=== PATIENT | male | born 1960 | race Caucasian/White ===

== ENCOUNTER 2019-01-20 16:06 | Inpatient (IN) ==
--- NOTE | 2019-01-20 16:23 | EKG Report ---
Test Performed on : 01/20/2019 4:18:36 PM Test Reason : sob Blood Pressure : / mmHG Vent. Rate : 094 BPM Atrial Rate : 094 BPM P-R Int : 182 ms QRS Dur : 154 ms QT Int : 392 ms P-R-T Axes : 051 228 008 degrees QTc Int : 490 ms Normal sinus rhythm. Right bundle branch block Abnormal ECG When compared with ECG of 26-MAY-2012 01:03, Questionable change in QRS axis Criteria for Septal infarct are no longer present Unconfirmed Result
--- NOTE | 2019-01-20 16:37 | Diag Imaging Result Doc PS360 ---
EXAM: CHEST-2 VIEWS 01/20/2019 HISTORY: sob TECHNIQUE: PA and lateral chest COMMENT: There is a fairly large hiatal hernia. There is a calcified granuloma over the left base. There is accentuated kyphosis. Compared to 06/06/2014 there has been no significant change in the appearance the chest. IMPRESSION: Stable chest. Electronically signed by Tre Thayer 01/20/2019 4:35 PM
[2019-01-20 16:38] LABS: BASO# 0.02 X1000 (0.0-0.2); BASO% 0.1 % (0.0-0.8); EOS# 0.13 X1000 (0.0-0.7); EOS% 0.7 % (0.0-10.0); HEMATOCRIT 48.3 % (42.0-52.0); HEMOGLOBIN 15.5 g/dL (14.0-18.0); IMM GRAN# 0.04 X1000 (0.0-0.04); IMM GRAN% 0.2 % (0.0-0.5); LYMPH# 1.33 X1000 (1.2-3.4); LYMPH% 7.5 % (20.5-51.1); MCHC 32.1 g/dL (33-37); MCV 84.1 FL (81-99); MONO# 1.79 X1000 (0.11-0.59); MONO% 10.1 % (1.7-9.3); MPV 11.4 FL (7.4-10.4); NEUT# 14.48 X1000 (1.4-6.5); NEUT% 81.4 % (42.2-75.2); PLT 197 X1000 (130-400); RBC 5.74 XMIL (4.7-6.1); RDW 17.4 % (11.5-14.5); WBC 17.79 X1000 (4.8-10.8)
[2019-01-20 16:42] LABS: INR 0.99; PROTIME 13.9 Seconds (11.0-16.0)
[2019-01-20 16:43] LABS: PTT 33.1 Seconds (22.3-41.8)
[2019-01-20] MEDS ORDERED: SOLU-MEDROL IV ONE (16:44)
[2019-01-20] MEDS ORDERED: DUONEB (A & A) INH ONE ×2 (16:44→18:09)
[2019-01-20 17:06] LABS: AGAP 13; ALB/GLOB RATIO 1.3; ALBUMIN 4.4 g/dL (3.5-5.0); ALKALINE PHOSPHATASE 95 U/L (32-122); BUN 14 mg/dL (8-22); CHLORIDE 101 mmol/L (98-107); CK PROFILE 149 U/L (24-204); COSMO 282; CREATININE 0.8 mg/dL (0.7-1.2); ESTIMATED GFR > 60; GLUCOSE 105 mg/dL (70-104); GOT 21 U/L (10-34); GPT 16 U/L (10-44); POTASSIUM 3.8 mmol/L (3.5-5.1); SODIUM 141 mmol/L (136-145); TCO2 27 mmol/L (25-35); TOTAL BILIRUBIN 0.43 mg/dL (0.20-1.00); TOTAL PROTEIN 7.7 g/dL (6.3-8.3)
--- NOTE | 2019-01-20 18:06 | PROVIDER DOCUMENTATION ---
This chart was entered by Marianela Vora Scribe, acting as scribe for Dre Frank MD. HPI-Respiratory General <Prabhu Camacho - Last Filed: 01/20/19 20:35> - General Source: patient - History of Present Illness-Resp Quality of Pain: reports: pressure Severity in ED: reports: moderate Onset/Duration: reports: 3 days ago Timing: reports: still present Context: reports: other Exposure: reports: unknown cause Cough Quality/Degree: reports: dry cough Episode Frequency: no prior episodes Current Respiratory Medication Therapy: Initiated see nurses note Modifying Factors: improves with: nothing Associated Symptoms: reports: cough, shortness of breath, sinus pain, short of breath, other (sinus congestion/drainage; low O2 sat) Similar Symptoms Previously?: No Recently seen or treated by another doctor?: No <Dre Frank - Last Filed: 01/21/19 07:03> - General Chief Complaint: Shortness of Breath Stated Complaint: SOB,COUGH Time Seen by Provider: 01/20/19 16:39 Allergies/Adverse Reactions: Patient Allergies Allergy/AdvReac Type Severity Reaction Status Date / Time No Known Allergies Allergy Verified 01/20/19 16:44 Home Medications: Home Medication List Medication Instructions Recorded Confirmed Last Taken Type ATORVAstatin [Lipitor] 20 mg PO DAILY 01/20/19 01/20/19 Unknown History Aspirin [Aspirin EC] 81 mg PO DAILY 01/20/19 01/20/19 Unknown History Diltiazem HCl [Diltiazem 24Hr ER] 180 mg PO DAILY 01/20/19 01/20/19 Unknown History Docusate Sodium 100 mg PO DAILY 01/20/19 01/20/19 Unknown History Ferrous Sulfate 325 mg PO BID 01/20/19 01/20/19 Unknown History Gabapentin 800 mg PO TID 01/20/19 01/20/19 Unknown History Losartan Potassium 25 mg PO DAILY 01/20/19 01/20/19 Unknown History Meloxicam 15 mg PO DAILY 01/20/19 01/20/19 Unknown History Methenamine Mandelate 1 tab PO TID 01/20/19 01/20/19 Unknown History Methocarbamol 750 mg PO BID PRN 01/20/19 01/20/19 Unknown History Omeprazole 40 mg PO DAILY 01/20/19 01/20/19 Unknown History Tamsulosin [Flomax] 0.4 mg PO DAILY 01/20/19 01/20/19 Unknown History Tramadol HCl 100 mg PO TID PRN 01/20/19 01/20/19 Unknown History - History of Present Illness-Resp Nature of Presenting Problem: 59 y/o male presents to ED with SOB, sinus congestion/drainage, cough, and sinus pain onset 3 days ago. Pt was sent to ED due to low O2 sat. Pt reports he is not on O2 at home. Pt is alert and oriented. (Dre Frank) Review of Systems - Adult - REVIEW OF SYSTEMS - ADULT Constitutional: reports: other (low O2 sat). denies: chills, fever Eyes: reports: no symptoms reported Ears, Nose, Mouth & Throat: reports: sinus problem. denies: epistaxis Cardiovascular: denies: chest pain, palpitations Respiratory: reports: cough, shortness of breath Gastrointestinal: denies: abdominal pain, diarrhea, nausea, vomiting Genitourinary: reports: no symptoms reported Musculoskeletal: denies: back pain, joint pain Integumentary: reports: no symptoms reported Neurological: denies: dizziness/vertigo, seizure Psychiatric: reports: no symptoms reported Endocrine: reports: no symptoms reported Hematologic/Lymphatic: reports: no symptoms reported Allergic/Immunologic: reports: no symptoms reported All Other Systems: Reviewed and Negative <Dre Frank - Last Filed: 01/21/19 07:03> Past History - Adult - PAST MEDICAL HISTORY-ADULT Review of Records: reports: Old Records Reviewed, Nursing Assessment Review, Medications Reviewed Major Childhood Illnesses: reports: denies history Cardiovascular: reports: CAD, HTN Respiratory: reports: denies history Gastrointestinal: reports: GERD, other (C Diff) Obstetrical/Gynecological: reports: denies history Genitourinary: reports: denies history Musculoskeletal: reports: denies history, other (akiolosis spondylitis) Neurological: reports: denies history, CVA Endocrine/Immune: reports: denies history Other Conditions: reports: denies history, other cancer (skin) - PRIOR SURGERIES/PROCEDURES Surgical/Procedure History: reports: other (dental; skin cancer removed) - IMMUNIZATION STATUS Childhood Immunizations: See Nurse Assessment Flu Vaccine: See Nurse Assessment - FAMILY HISTORY Family History: reviewed, not pertinent - SOCIAL HISTORY Smoking: quit greater than 1 year Substance Use: none/never Alcohol Use Frequency: never Living Situation: family <Dre Frank - Last Filed: 01/21/19 07:03> Physical Exam-General - PHYSICAL EXAM-ADULT Initial Vital Signs Reviewed: Yes - CONSTITUTIONAL General Appearance: alert, no apparent distress - EYES Eyes: PERRL/EOMI, pink conjunctivae - HEAD, EARS, NOSE, MOUTH & THROAT HENMT: normocephalic/atraumatic, moist mucous membranes, normal ENT inspection - NECK Neck: non-tender, full range of motion - RESPIRATORY Respiratory: chest non-tender, decreased breath sounds, increased rate - CARDIOVASCULAR Cardiovascular: tachycardia - GASTROINTESTINAL (ABDOMEN) Abdominal Exam: normal bowel sounds, non tender, soft - MUSCULOSKELETAL Back Exam: normal inspection, no CVA tenderness Extremity: normal range of motion, non-tender, normal gait - SKIN Integumentary: normal color, warm/dry - NEUROLOGIC Neurologic: grossly normal - PSYCHIATRIC Psych/Mental Status: normal mood/affect, normal thought content, normal thought process <Dre Frank - Last Filed: 01/21/19 07:03> - HEART Score HEART Score: History: Slightly Suspicious HEART Score: ECG: Normal HEART Score: Age: 45-65 Years HEART Score: Risk Factors for Atherosclerotic Disease: 1 or 2 Risk Factors HEART Score: Troponin: < or = Normal Limit Total HEART Score:: 2 <Dre Frank - Last Filed: 01/21/19 07:03> Progress - PLAN OF CARE/RESULTS Result Diagrams: 01/20/19 16:23 01/20/19 16:23 <Prabhu Camacho - Last Filed: 01/20/19 20:35> - PLAN OF CARE/RESULTS Result Diagrams: 01/20/19 16:23 01/20/19 16:23 - EKG 1 Time of EKG reading by physician:: 16:18 EKG Read and Signed by:: Dre Frank EKG Interpretation (*Must complete 3 of following elements*): Abnormal Rate: 94 Rhythm: NSR [place]: normal QRS: RBB [place] Interval: normal ST Wave: normal - XRAY 1 XRAY Study: Chest Impression: Normal (COMMENT: There is a fairly large hiatal hernia. There is a calcified granuloma over the left base. There is accentuated kyphosis. Compared to 06/06/2014 there has been no significant change in the appearance the chest. IMPRESSION: Stable chest. Electronically signed by Tre Thayer 01/20/2019 4:35 PM) <Dre Frank - Last Filed: 01/21/19 07:03> - PLAN OF CARE/RESULTS Progress/Plan/Lab Results: Pt signed out to me by Dr. Frank, workup completed and pt just needed to be admitted for hypoxia, spoke with the hospitalist and will admit (Prabhu Camacho) Departure - Departure Date of Disposition Decision: 01/20/19 Time of Disposition Decision: 20:37 Certified Medical Emergency: Emergent - Critical Care Note This patient required my direct & personal management of CC.: No <Prabhu Camacho - Last Filed: 01/20/19 20:35> <Dre Frank - Last Filed: 01/21/19 07:03> - Departure DIAGNOSIS: Hypoxia Disposition: ADMITTED INPATIENT 09 Condition: Stable Attestation - Physician/ REJI Attestation Patient care was provided by Advanced Practice Provider:: No The physician spent face to face time with patient:: Yes Advanced Practice Provider documentation review:: Supervising physician onsite and consulted in the evaluation and care of this patient. The physician did have a face to face encounter with the patient. <Dre Frank - Last Filed: 01/21/19 07:03> This chart was documented by the indicated scribe, (Marianela Vora Scribe) and accurately reflects the services I performed and decisions made by me, Dre Frank MD, as attested by the provider's signature.
[2019-01-20] MEDS ORDERED: ROCEPHIN 2 GM in NS 50 ML IV ONE (18:09)
[2019-01-20] MEDS ORDERED: ZITHROMAX 500 MG/NS 500 MG/250 ML IVPB IV ONE (18:09)
--- NOTE | 2019-01-20 21:09 | Diag Imaging Result Doc PS360 ---
EXAM: CT THORAX W/O CONTRAST - 01/20/2019 HISTORY: hypoxia TECHNIQUE: CT thorax without contrast. No contrast administered per request the referring provider. COMPARISON: 01/20/2019 chest radiographs FINDINGS: There is generalized bronchial wall thickening which may relate to COPD and/or bronchitis. There is a lobulated pleural-based opacity at the posterior medial inferior right lower lobe which may represent small area of atelectasis or consolidation. There is mild pleural thickening at the posterior right base. There is no other consolidation, pleural effusion, or pneumothorax identified. There are nonspecific small mediastinal lymph nodes. There is a large hiatal hernia. There are apparent cyst noted at the upper left kidney. IMPRESSION: Generalized bronchial wall thickening which may relate to COPD and/or bronchitis. Lobulated pleural-based opacity at posterior medial inferior right lower lobe, possibly representing peripheral atelectasis or consolidation. Mild pleural thickening at posterior right base. Follow-up is recommended. Large hiatal hernia. This exam was performed using automated exposure control, adjustment of mA or kV according to patient size, and/or use of iterative reconstruction technique. Electronically signed by Thor Murillo 01/20/2019 9:07 PM
[2019-01-20 22:11] LABS: URINE SOURCE CLEAN CATCH
[2019-01-20 22:28] LABS: BILIRUBIN URINE NEGATIVE (NEGATIVE); BLOOD URINE NEGATIVE (NEGATIVE); COLOR YELLOW; GLUCOSE URINE NEGATIVE (NEGATIVE); KETONE URINE 40 mg/dL (NEGATIVE); LEUKOCYTES URINE TRACE (NEGATIVE); NITRITE URINE NEGATIVE (NEGATIVE); PROTEIN URINE 100 mg/dL (NEGATIVE); SP GRAVITY URINE 1.031; TURBIDITY URINE CLEAR (CLEAR); UROBILINOGEN URINE NORMAL (NORMAL)
[2019-01-20 22:34] LABS: UR EPITHELIAL CELLS <10 /HPF (<10); URINE BACTERIA NEGATIVE /HPF; URINE RBC <10 /HPF (<10); URINE WBC <10 /HPF (<10)
--- NOTE | 2019-01-20 22:53 | HISTORY AND PHYSICAL ---
PRIMARY CARE PHYSICIAN: Gabo Trinidad MD. REASON FOR ADMISSION: A 5-day history of cough and shortness of breath. HISTORY OF PRESENT ILLNESS: Mr. Nitesh Del Real is a 59-year-old man with past medical history of skin cancer, hypertension, BPH, reflux disease, osteoporosis and ankylosing spondylitis, who comes in complaining of cough and postnasal drip for the last 5 days. He says his cough is productive of whitish sputum and is also associated with pleuritic type chest pain. He says he has a chronic long-standing history for the last 2 months of dyspnea and has reports that he has had an extensive workup including a stress test, echocardiograms in the last few months and even a lung function test and was told that his tests were normal although his PFT did show moderate reversible airway obstruction. He denies any fever, but says he has been having chills and profound diaphoresis today, which prompted him to seek care at the urgent care. When they evaluated him and noted his O2 saturations were in the low 80s and referred him to the ER. Mr. Del Real denies any leg swelling, PND, orthopnea. No sneezing or ocular nasal pruritus. Denies extremity swelling, redness or pain. No GI or complaints. REVIEW OF SYSTEMS: Twelve system review was done. Positive findings per HPI. ALLERGIES: No known allergies. HOME MEDICATIONS: He takes aspirin 81 mg daily. Cardizem 180 mg daily. Colace 100 mg daily. Iron tablets 325 mg b.i.d., Flomax 0.4 mg daily. Gabapentin 800 mg t.i.d., Lipitor 20 mg daily. Losartan 25 mg daily. Mobic 15 mg daily. Methenamine mandelate 1 tablet t.i.d., methocarbamol 75 mg b.i.d., omeprazole 40 mg daily, tramadol 100 mg t.i.d. SURGICAL HISTORY: Notable for skin cancer excision. Had a cardiac catheterization a few years ago, but reports that there was no blockages. FAMILY HISTORY: Notable for lung cancer. His dad had heart disease and type 2 diabetes in first- degree relatives. SOCIAL HISTORY: Denies any smoking, drinking or using illicit drugs. PAST MEDICAL HISTORY: As noted above, including sleep apnea. LAB WORK: Notable for white count of 17,000, hemoglobin and hematocrit of 15 and 48, platelets 197 with 81% neutrophils. BUN is 14, creatinine 0.8, glucose is 105, troponin is negative. ProBNP is negative. Lactate was normal. PTT is normal. Chest film shows no acute infiltrate. However, patient's CT scan did show posterior inferior area of consolidation. Generalized bronchial wall thickening, which may relate to COPD and bronchitis. Also, a very large hiatal hernia. PHYSICAL EXAMINATION: GENERAL/VITAL SIGNS: Middle-aged, man, whose blood pressure is 156/91, heart rate 81, respirations 18, temperature is 100.4, 95% on room air on 2 L. HEENT: Head is normocephalic, atraumatic. Eyes, VAHID, EOMI. Anicteric and not pale. ENT exam is grossly normal. NECK: No sign of cyanosis. Neck is supple. No JVD or carotid bruit. No thyromegaly. CHEST: The patient has bibasilar wheezes more on the right compared to the left with crepitations in both lung schmidt. Decreased entry in the bases. CARDIOVASCULAR: First and second heart sounds heard. No gallops, rubs. Rhythm is regular. ABDOMEN: Slightly full, soft. No mass, megaly. Bowel sounds are normal. RECTAL: Deferred at this time. EXTREMITIES: The patient has good distal pulses. Volumes are regular and symmetrical in both lower extremities. No edema, clubbing or cyanosis. NEUROLOGICAL: No gross focal deficits. SKIN: The patient is clammy and cold and patient is diaphoretic. No erythema, no skin breakdown or rashes. MUSCULOSKELETAL: Exam is grossly normal. ASSESSMENT: 1. Probable aspiration pneumonia. 2. Large hiatal hernia. 3. Hypertension. 4. Chronic obstructive pulmonary disease. 5. Sleep apnea. 6. Osteoporosis. 7. Ankylosing spondylitis. PLAN: Patient will be treated for presumptive aspiration pneumonia based on the fact that most of his symptoms on the right side of the lung. He has a large hiatal hernia which may be disposing to that. Will also cover community-acquired pathogen. Hence my choice of Levaquin and clindamycin. The patient will need nebulizer treatments. If primary is just bronchitis of both acute and chronic in nature. Continue home medications as outlined above. Monitor for urinary retention since patient has underlying BPH and will be on Ipratropium in his inhalation. cc: OlMD Gabo Avendaño MD [facility]
[2019-01-20] MEDS ORDERED: ZOFRAN IV PRN (23:11)
[2019-01-20] MEDS ORDERED: TYLENOL PO PRN (23:11)
[2019-01-20] MEDS ORDERED: CLINDAMYCIN IV SCH (23:11)
[2019-01-21] MEDS: LEVAQUIN 750 MG/D5W 750 MG/150 ML IVPB IV SCH ×2 (00:28→21:12)
[2019-01-21] MEDS: LOVENOX SUBQ SCH ×2 (00:28→21:12)
[2019-01-21] MEDS: ROBAXIN PO PRN ×3 (00:45→21:12)
[2019-01-21] MEDS: PRILOSEC PO SCH ×2 (00:45→21:12)
[2019-01-21] MEDS: ULTRAM PO PRN ×3 (00:45→21:11)
[2019-01-21] MEDS: CLINDAMYCIN 600 MG/D5W 600 MG/50 ML IVPB IV SCH ×3 (02:20→17:00)
[2019-01-21] MEDS: DUONEB (A & A) INH SCH ×4 (03:40→19:47)
[2019-01-21 07:02] LABS: BASO# 0.01 X1000 (0.0-0.2); BASO% 0.1 % (0.0-0.8); HEMATOCRIT 46.2 % (42.0-52.0); HEMOGLOBIN 14.8 g/dL (14.0-18.0); IMM GRAN# 0.03 X1000 (0.0-0.04); IMM GRAN% 0.2 % (0.0-0.5); LYMPH# 0.74 X1000 (1.2-3.4); LYMPH% 6.1 % (20.5-51.1); MCH 26.9 PG (27-31); MCV 83.8 FL (81-99); MONO# 0.39 X1000 (0.11-0.59); MONO% 3.2 % (1.7-9.3); MPV 11.2 FL (7.4-10.4); NEUT# 10.96 X1000 (1.4-6.5); NEUT% 90.4 % (42.2-75.2); PLT 199 X1000 (130-400); RBC 5.51 XMIL (4.7-6.1); RDW 17.2 % (11.5-14.5); WBC 12.13 X1000 (4.8-10.8)
[2019-01-21 07:08] LABS: AGAP 13; BUN 19 mg/dL (8-22); CALCIUM 9.7 mg/dL (8.8-10.2); CHLORIDE 102 mmol/L (98-107); COSMO 284; CREATININE 0.8 mg/dL (0.7-1.2); ESTIMATED GFR > 60; GLUCOSE 174 mg/dL (70-104); POTASSIUM 3.6 mmol/L (3.5-5.1); SODIUM 139 mmol/L (136-145); TCO2 24 mmol/L (25-35)
[2019-01-21 07:35] LABS: LYMPHS 6 % (21-51); MONO 4 % (1-9); SEGS 90 % (42-75)
[2019-01-21] MEDS: FLOMAX PO SCH (08:01)
[2019-01-21] MEDS: COZAAR PO SCH (08:01)
[2019-01-21] MEDS: NEURONTIN PO SCH ×3 (08:01→17:00)
[2019-01-21] MEDS: LIPITOR PO SCH (08:01)
[2019-01-21] MEDS: ASPIRIN EC PO SCH (08:01)
[2019-01-21] MEDS: CARDIZEM LA PO SCH (08:01)
[2019-01-21] MEDS ORDERED: METHENAMINE MANDELATE PO SCH (09:00)
[2019-01-21] MEDS ORDERED: PNEUMOVAX 23 IM ONE (11:48)
--- NOTE | 2019-01-21 17:41 | PROGRESS NOTE ---
DATE: 01/21/2019 INTERVAL HISTORY: Mr. Del Real was admitted overnight for shortness of breath and occasional cough of about 5 days' duration. He was found to have a large hiatal hernia and right lower lobe pneumonia. He is being treated with intravenous antibiotics. SUBJECTIVE: He is denying any expectoration, though he has a sinus congestion and nasal stuffiness. He states that before he was started on proton pump inhibitors a few weeks ago, he would wake up in the middle of the night and would throw up because of his large hiatal hernia. He also tells me that he is being treated for his anemia, which currently appears to have resolved. He has about a 2 pack per day history of 20 years' duration where he had quit smoking about 20 years ago now. He has ankylosing spondylitis history. Currently he is denying any chest pain. His shortness of breath is also better. He has occasional cough. The patient's daughter is at bedside. VITALS: Temperature 97.8, pulse 73, respiratory rate 22, blood pressure 120/64, saturating 95% on 2 L nasal cannula. PHYSICAL EXAMINATION: General: Overweight man in mild distress because of shortness of breath. He has nasal cannula on. HEENT: Oral cavity is moist. Respiratory: He has significantly decreased air entry bilaterally without any wheeze, rhonchi or crackles. He has barrel-shaped chest. Cardiovascular: S1, S2 normal. No murmur, rub, or gallop. Abdomen: Soft, nontender. No hepatosplenomegaly. No lower extremity edema. He does have significant Platynychia, or flattening of nail beds bilaterally. He also has marked kyphoscoliosis. LABORATORY: Suggestive of improving leukocytosis. Normal hemoglobin, hematocrit, and platelet count. Normal electrolytes. He does have elevated lactate of unclear significance. Microbiology: Urine culture, blood culture no growth to date. IMAGING: Chest CT performed yesterday night had suggested large hiatal hernia, lobulated pleural based opacity, possibly representing consolidation. There was also mild pleural thickening at the posterior right base. ASSESSMENT AND PLAN: 1. Likely sepsis due to right lower lobe pneumonia, likely due to aspiration pneumonia. Follow up final blood culture results, urine antigens and follow up sputum culture if he is able to make one. Continue intravenous levofloxacin and intravenous clindamycin. The patient was extensively discussed about right lower lobe opacity and need for repeat CAT scan in future with Pulmonology follow-up. His shortness of breath could be in the setting of mild acute chronic obstructive pulmonary disease exacerbation and there could be a component of restrictive lung disease because of his kyphoscoliosis. Continue albuterol ipratropium nebulization. 2. Hiatal hernia with history of chronic gastroesophageal reflux disease. He has been following up with outpatient furniture refinisher. Continue omeprazole. 3. Essential hypertension. Continue home diltiazem, losartan. 4. Ankylosing spondylitis and chronic pain. Continue home tramadol and gabapentin with methocarbamol. 5. Others. Continue home aspirin and atorvastatin. 6. Disposition: Patient remains inside the hospital as I monitor his respiratory status. Plan of care discussed with patient and his daughter at bedside. All of their questions have been answered satisfactorily. cc: Pacheco Roman MD MTDD
[2019-01-21] MEDS: FERROUS SULFATE PO SCH (21:26)
[2019-01-22] MEDS: CLINDAMYCIN 600 MG/D5W 600 MG/50 ML IVPB IV SCH ×3 (01:05→16:17)
[2019-01-22] MEDS: LEVAQUIN 750 MG/D5W 750 MG/150 ML IVPB IV SCH ×2 (01:05→23:24)
[2019-01-22] MEDS: LOVENOX SUBQ SCH ×2 (01:06→23:24)
[2019-01-22] MEDS: DUONEB (A & A) INH SCH ×4 (03:23→21:00)
[2019-01-22] MEDS: PRILOSEC PO SCH ×2 (06:13→20:28)
[2019-01-22 07:10] LABS: BASO# 0.02 X1000 (0.0-0.2); BASO% 0.1 % (0.0-0.8); EOS# 0.01 X1000 (0.0-0.7); HEMATOCRIT 43.2 % (42.0-52.0); HEMOGLOBIN 13.7 g/dL (14.0-18.0); IMM GRAN# 0.11 X1000 (0.0-0.04); IMM GRAN% 0.5 % (0.0-0.5); LYMPH# 1.79 X1000 (1.2-3.4); LYMPH% 7.9 % (20.5-51.1); MCHC 31.7 g/dL (33-37); MCV 85.2 FL (81-99); MONO# 1.88 X1000 (0.11-0.59); MONO% 8.2 % (1.7-9.3); MPV 11.6 FL (7.4-10.4); NEUT# 18.99 X1000 (1.4-6.5); NEUT% 83.3 % (42.2-75.2); PLT 219 X1000 (130-400); RBC 5.07 XMIL (4.7-6.1); RDW 17.3 % (11.5-14.5)
[2019-01-22] MEDS: CARDIZEM LA PO SCH (09:37)
[2019-01-22] MEDS: LIPITOR PO SCH (09:38)
[2019-01-22] MEDS: FERROUS SULFATE PO SCH ×2 (09:38→20:29)
[2019-01-22] MEDS: NEURONTIN PO SCH ×3 (09:38→20:29)
[2019-01-22] MEDS: MOBIC PO SCH (09:38)
[2019-01-22] MEDS: COZAAR PO SCH (09:38)
[2019-01-22] MEDS: FLOMAX PO SCH (09:38)
[2019-01-22] MEDS: ASPIRIN EC PO SCH (09:38)
[2019-01-22] MEDS ORDERED: LASIX IV ONE (15:27)
[2019-01-22] MEDS: PREDNISONE PO SCH (16:16)
[2019-01-22] MEDS: ULTRAM PO PRN (16:17)
[2019-01-22] MEDS: ROBAXIN PO PRN (16:17)
[2019-01-22] MEDS: COLACE PO SCH (17:16)
[2019-01-22] MEDS: FLONASE NAS SCH (17:18)
--- NOTE | 2019-01-22 18:47 | PROGRESS NOTE ---
DATE: 01/22/2019 INTERVAL HISTORY: Patient had hypoxia and saturation of 88% on room air. SUBJECTIVE: The patient states he is feeling fine. He is feeling a little better than he did before. He denies any chest pain. He is still a little short of breath. He denies any nausea, vomiting, abdominal pain. We discussed about my exam finding. We also discussed about possible home oxygen need. I answered all of his questions. Patient's daughter is at bedside. Currently vital signs are temperature 97.9 degrees, pulse 90, respiratory rate 20, blood pressure 145/81, saturating 93% on room air. PHYSICAL EXAMINATION: General: The patient does not appear in any acute distress. Oral cavity is moist. He does have some tachypnea and use of accessory muscles. He has barrel shaped chest. Air entry bilaterally decreased significantly without any wheeze, rhonchi. Mild inspiratory crackles bilateral infrascapular region. S1, S2 normal. No murmur or gallop. Abdomen: Soft, nontender. No hepatosplenomegaly. No lower extremity edema. He has platynychia or flattening of nail beds bilaterally. He also has some marked kyphoscoliosis. LABS: Suggestive of leukocytosis with eosinophil count of 0. Normal electrolytes. Microbiological data. Urine culture, blood culture no growth till date. Influenza screen on admission was negative. His urine antigens are in lab. ASSESSMENT AND PLAN: 1. Sepsis due to right lower lobe pneumonia due to aspiration pneumonia. Follow up urine antigens. Continue intravenous levofloxacin and intravenous clindamycin. He also has mild acute chronic obstructive pulmonary disease exacerbation. I will continue him on albuterol ipratropium nebulization, start him on oral steroids and give him a dose of Lasix considering his clinical examination. He should set up outpatient pulmonology followup. I will try and help him arrange that. His kyphoscoliosis because of ankylosing spondylitis could possibly restrictive lung disease. He was former smoker 2 PPD for about 20 years and quit in 2000. 2. Hiatal hernia with history of chronic gastroesophageal reflux disease which might have contributed to aspiration pneumonia. Continue omeprazole and outpatient Gastroenterology followup. 3. Essential hypertension. Continue home losartan, diltiazem and I will continue his home aspirin and atorvastatin as well . 4. Ankylosing spondylitis and chronic pain. Continue home tramadol, gabapentin, methocarbamol and I added his home meloxicam considering his significant pain, I am continuing his tamsulosin for benign prostatic hypertrophy. 5. Disposition. Patient remains inside the hospital as I monitor his respiratory distress. Social Work team has been consulted for possible need for home oxygen. Depending on his course I would anticipate discharge in next 24 to 48 hours. Plan of care discussed with the patient and his daughter at bedside, all of their questions have been answered. cc: Pacheco Roman MD MTDD
[2019-01-23] MEDS: NEURONTIN PO SCH ×3 (01:50→18:51)
[2019-01-23] MEDS: CLINDAMYCIN 600 MG/D5W 600 MG/50 ML IVPB IV SCH ×3 (01:50→18:51)
[2019-01-23] MEDS: DUONEB (A & A) INH SCH ×4 (03:29→22:00)
[2019-01-23 06:58] LABS: BASO# 0.04 X1000 (0.0-0.2); BASO% 0.3 % (0.0-0.8); HEMATOCRIT 45.1 % (42.0-52.0); HEMOGLOBIN 14.3 g/dL (14.0-18.0); IMM GRAN# 0.29 X1000 (0.0-0.04); IMM GRAN% 1.9 % (0.0-0.5); LYMPH# 0.88 X1000 (1.2-3.4); LYMPH% 5.8 % (20.5-51.1); MCH 27.3 PG (27-31); MCHC 31.7 g/dL (33-37); MCV 86.1 FL (81-99); MONO# 0.86 X1000 (0.11-0.59); MONO% 5.6 % (1.7-9.3); MPV 11.4 FL (7.4-10.4); NEUT% 86.4 % (42.2-75.2); PLT 246 X1000 (130-400); RBC 5.24 XMIL (4.7-6.1); RDW 17.7 % (11.5-14.5); WBC 15.27 X1000 (4.8-10.8)
[2019-01-23] MEDS: COLACE PO SCH (08:10)
[2019-01-23] MEDS: LIPITOR PO SCH (08:10)
[2019-01-23] MEDS: ASPIRIN EC PO SCH (08:10)
[2019-01-23] MEDS: CARDIZEM LA PO SCH (08:10)
[2019-01-23] MEDS: COZAAR PO SCH (08:11)
[2019-01-23] MEDS: FLOMAX PO SCH (08:11)
[2019-01-23] MEDS: MOBIC PO SCH (08:11)
[2019-01-23] MEDS: FERROUS SULFATE PO SCH ×2 (08:11→22:53)
[2019-01-23] MEDS: PREDNISONE PO SCH (08:12)
[2019-01-23] MEDS: ULTRAM PO PRN ×2 (08:12→22:59)
[2019-01-23] MEDS: FLONASE NAS SCH (08:12)
[2019-01-23] MEDS: PRILOSEC PO SCH (22:53)
[2019-01-23] MEDS: LOVENOX SUBQ SCH (22:53)
[2019-01-23] MEDS: LEVAQUIN 750 MG/D5W 750 MG/150 ML IVPB IV SCH (22:53)
[2019-01-24] MEDS: CLINDAMYCIN 600 MG/D5W 600 MG/50 ML IVPB IV SCH ×2 (02:00→13:56)
[2019-01-24] MEDS: DUONEB (A & A) INH SCH (03:00)
--- NOTE | 2019-01-24 04:48 | PROGRESS NOTE ---
DATE: 01/23/2019 SUBJECTIVE/INTERVAL HISTORY: No acute events overnight. It was charted that his oxygen saturation on room air was 88%. Subjectively, he denies chest pain. He states that his shortness of breath is better than on presentation; however, he is still feeling a little short of breath. He denies any cough. He denies any expectoration. We discussed about negative culture results. We also discussed about negative infectious data so far. We discussed about possibly restrictive lung disease secondary to ankylosing spondylitis. The initial plan was to have him outpatient pulmonology follow-up. However, he has not himself scheduled 1, and he would want me to do that. Unfortunately, over the weekend, I will not be able to do that, so I went ahead and placed a pulmonology consult so that he could be seen by a edger hand, as per his request. His daughter is also at bedside. OBJECTIVE: Vital signs: Temperature 98.1 degrees, pulse 87, respiratory rate 16, blood pressure 136/88. On bedside at room air, he is saturating 89%, but when he did physical exertion, his saturation dropped down to 87% and he qualified for home oxygen. General: He appears hyperventilating but not in any acute distress. HEENT: Oral cavity is moist. Chest: He has barrel shaped chest. Decreased breath sounds, without any wheeze, rhonchi, or crackles bilaterally. Cardiovascular: S1, S2 is normal. No murmur, rub, or gallop. Abdomen: Soft, nontender. No hepatosplenomegaly. No lower extremity edema. Musculoskeletal: He has flattening of nail beds bilaterally. He also has marked kyphoscoliosis. LABS: Suggestive of leukocytosis with 0 degree of eosinophil. Normal hemoglobin, hematocrit, and platelet count. He does not have any new BMP. Urine streptococcal and Legionella antigens are negative. ASSESSMENT AND PLAN: 1. Right lower lobe pneumonia due to aspiration pneumonia leading to acute hypoxic respiratory failure and suspicion of acute vs chronic bronchitis. He may have a component of restrictive lung disease considering his kyphoscoliosis. He would need a formal lung function test to evaluate his lung function. Continue intravenous levofloxacin and intravenous clindamycin for suspected aspiration pneumonia considering his large hiatal hernia and gastroesophageal reflux disease. Continue oral steroids and albuterol/ipratropium nebulization. He did have a 2 [id number] smoking history for about 20 years, and he quit in 2000. I will consult Pulmonology for further recommendation, as per discussion with the patient. 2. Hiatal hernia with history of chronic gastroesophageal reflux disease. Continue omeprazole and outpatient Gastroenterology followup. 3. Other issues, including sepsis on presentation because of aspiration pneumonia has resolved; continue home losartan, diltiazem, aspirin, and atorvastatin for essential hypertension; continue tramadol, gabapentin, methocarbamol, and meloxicam for significant pain related to ankylosing spondylitis; continue tamsulosin for BPH. 4. Disposition. I have discussed with the charge nurse about checking on the progress of home oxygen set up. Meanwhile, I will continue to monitor patient as I await Pulmonology recommendation. Plan of care discussed with the patient and his daughter at bedside, all of their questions have been answered. cc: Pacheco Roman MD MTDD
[2019-01-24] MEDS: NEURONTIN PO SCH (05:23)
[2019-01-24 06:56] LABS: AGAP 8; BUN 17 mg/dL (8-22); CALCIUM 10.5 mg/dL (8.8-10.2); CHLORIDE 104 mmol/L (98-107); COSMO 286; CREATININE 0.8 mg/dL (0.7-1.2); ESTIMATED GFR > 60; GLUCOSE 88 mg/dL (70-104); POTASSIUM 4.8 mmol/L (3.5-5.1); SODIUM 143 mmol/L (136-145); TCO2 31 mmol/L (25-35)
[2019-01-24] MEDS: COMBIVENT RESPIMAT INHALER INH SCH ×3 (08:47→15:21)
[2019-01-24] MEDS: FLOMAX PO SCH (12:29)
[2019-01-24] MEDS: PREDNISONE PO SCH (12:29)
[2019-01-24] MEDS: CARDIZEM LA PO SCH (12:29)
[2019-01-24] MEDS: FERROUS SULFATE PO SCH (12:29)
[2019-01-24] MEDS: LIPITOR PO SCH (12:30)
[2019-01-24] MEDS: COLACE PO SCH (12:30)
[2019-01-24] MEDS: MOBIC PO SCH (12:30)
[2019-01-24] MEDS: COZAAR PO SCH (12:30)
[2019-01-24] MEDS: ASPIRIN EC PO SCH (12:37)
[2019-01-24] MEDS: ULTRAM PO PRN (12:37)
[2019-01-24] MEDS: FLONASE NAS SCH (12:37)
[2019-01-24 12:58] VITALS: BP 177/97
--- NOTE | 2019-01-24 22:27 | PULMONOLOGY CONSULTATION ---
DATE: 01/24/2019 REQUESTING PHYSICIAN: Pacheco Roman MD. REASON FOR CONSULTATION: New diagnosis of COPD and ankylosing spondylitis. HISTORY OF PRESENT ILLNESS: Mr. Del Real is a 59-year-old white male with a 30- to [id number] history of tobacco (nonsmoker x20 years) who underwent pulmonary function studies in 2012 which revealed moderate obstruction. He has also been diagnosed with ankylosing spondylitis. He continues to work and works 3rd shift. The patient reports he was doing well until he developed sinus congestion, sinus drainage, a productive cough, and a sore throat. He was evaluated at a walk-in clinic and was found to be hypoxemic. The patient presented to the emergency room, and he was hypoxemic on room air. CT scan of the thorax was performed which revealed a moderate to large- sized hiatal hernia, small right lower lobe pneumonia with generalized bronchial wall thickening. Sinus x-rays were not performed. The patient has continued to improve and is approaching discharge. He continues to require oxygen and is being evaluated for home oxygen therapy. PAST MEDICAL HISTORY/PROBLEM LIST: 1. Moderate obstruction on prior pulmonary function studies. 2. Ankylosing spondylitis with significant kyphosis. 3. Hypertension. 4. Hiatal hernia with gastroesophageal reflux. 5. Obstructive sleep apnea, on CPAP prescribed by Dr. Evans. 6. Osteoporosis. SOCIAL HISTORY: Prior tobacco use. No current alcohol use. He continues to work. REVIEW OF SYSTEMS: Notable for GI reflux. Reports this is improved with Nexium. He does work the 3rd shift and gets off 6:30 in the morning and occasionally will eat and then go to bed. His bed is lying flat. He previously had a wedge but no longer uses that. FAMILY HISTORY: Noncontributory to current presentation. PHYSICAL EXAMINATION: General: Reveals a well-developed, well-nourished male who is resting comfortably, in no distress. Vital signs: Blood pressure 155/84, oxygen saturation 95% on 2 L per nasal cannula. HEENT: Pupils are equal and reactive. Oropharynx is clear. Neck: Supple. Chest: Reveals mild prolonged expiratory phase with crackles at the right base. Cardiac: Regular rate. Normal S1, normal S2. Abdomen: Soft. Extremities: Without edema. LABORATORIES: Microbiology reveals all cultures negative during this hospitalization. White blood count yesterday 15.27, hemoglobin 14.3, platelet count 246,000. Sodium 143, potassium 4.8, chloride 104, bicarbonate 31, BUN 178, creatinine 0.8. IMPRESSION: A 41-year-old with upper respiratory infection, who presented to the emergency room with: 1. Acute hypoxemic respiratory failure. 2. Mild pneumonia/consolidation at the right posterior base. 3. Hiatal hernia. 4. Moderate chronic obstructive pulmonary disease. RECOMMENDATIONS: 1. Agree with plans for discharge today. 2. Encourage the patient to follow strict reflux precaution. 3. I will follow up as an outpatient. He should undergo a followup CT scan in 4 to 6 weeks to ensure clearing of the right base. 4. Yearly influenza vaccines. 5. Consider evaluation and surgical correction of his hiatal hernia if this continues to give him significant difficulty. cc: Holger Powers MD
--- NOTE | 2019-01-25 09:55 | DISCHARGE SUMMARY ---
ADMISSION DATE: 01/20/2019 DISCHARGE DATE: 01/24/2019 DISCHARGE DISPOSITION: Home with home oxygen 1 to 2 L continuous. DISCHARGE CONDITION: The patient is hemodynamically stable. He is denying any chest pain. His shortness of breath has improved; however, he is needing oxygen because at rest, his SpO2 is 88%, and with exertion it goes down to 87%. DISCHARGE DIAGNOSES: 1. Acute hypoxic respiratory failure. 2. Right lower lobe pneumonia, likely aspirational. 3. Symptomatic hiatal hernia. 4. Ankylosing spondylitis causing kyphoscoliosis with suspicion of contributing, contributing it to suspected restrictive lung disease. 5. Acute versus chronic bronchitis. 6. Sepsis from aspiration pneumonia. OTHER DIAGNOSES: 1. History of essential hypertension. 2. History of hiatal hernia. 3. History of chronic pain. 4. Allergic rhinitis. 5. Iron deficiency anemia. 6. History of chronic constipation. DISCHARGE MEDICATIONS: Aspirin 81 mg daily, diltiazem 180 mg p.o. daily 24-hour extended release tablet, docusate 100 mg daily, ferrous sulfate 325 mg b.i.d., tamsulosin 0.4 mg daily, gabapentin 800 mg t.i.d., atorvastatin 20 mg daily, losartan 25 mg daily, meloxicam 15 mg daily, methocarbamol 750 mg b.i.d. as needed, omeprazole 40 mg daily, tramadol 100 mg t.i.d. as needed, ipratropium and albuterol inhaler 1 puff inhaled every 6 hours as needed for shortness of breath, fluticasone 50 mcg nasal spray 1 spray intranasal daily, levofloxacin 750 mg daily--2 tablets have been prescribed, prednisone 40 mg daily for 3 days. CONSULTATIONS DURING HOSPITALIZATION: Dr. Powers from Pulmonology; however, before he could be seen by [employer], the patient was discharged, so he was advised to follow up with him as an outpatient. The patient is also discharged on home oxygen. VITALS AT THE TIME OF DISCHARGE: Temperature 97.9, pulse 87, respiratory rate 16, blood pressure 171/97, saturating 99% on 2 L nasal cannula. PHYSICAL EXAMINATION: GENERAL: The patient does not appear in any acute distress. HEENT: Oral cavity is moist. CHEST: He does have a barrel-shaped chest without any wheeze, rhonchi or crackles. Air entry is bilaterally equal. CARDIAC: S1, S2 normal. No murmur, rub or gallop. ABDOMEN: Soft, nontender. No hepatosplenomegaly. No lower extremity edema. MUSCULOSKELETAL: He has flattening of nail beds bilaterally and marked kyphoscoliosis. SIGNIFICANT LABS DURING HOSPITAL ADMISSION: He had WBC of 17,000 on admission, which decreased to 15,000 at the time of discharge. His hemoglobin was 14.3, platelets were 246. His leukocytosis was also partly due to steroid use. His chemistries were essentially unremarkable with BUN of 17, creatinine of 0.8 and potassium of 4.8. His urine Legionella and urine streptococcal antigens were negative. SIGNIFICANT MICROBIOLOGY DURING HOSPITAL ADMISSION: Urine culture, blood culture and influenza screen were negative without any growth. SIGNIFICANT IMAGING DURING HOSPITAL ADMISSION: Chest CT had detected generalized bronchial wall thickening which may related to COPD and/or bronchitis. There was lobulated pleural base opacity at posterior, medial and inferior right lower lobe, possibly representing peripheral atelectasis or consolidation. Mild pleural thickening at the posterior right base. The patient was advised to get a repeat CT scan as an outpatient. HOSPITAL COURSE SUMMARY: Mr. Del Real is a 59-year-old man who had a remote history of smoking of about 2 packs per day for about 20 years, and he had quit smoking 20 years prior to presentation, ankylosing spondylitis, who had come in with chief complaint of cough and shortness of breath of about 5 days' duration. The cough was also associated with pleuritic chest pain. His shortness of breath had initially started about 2 months ago, and he had a stress test and echocardiogram for cardiac workup. The cardiac workup was negative. According to documentation, he did have pulmonary function test with reversible airflow obstruction; however, I could not see any documentation of that. With his shortness of breath symptoms, he had gone to urgent care clinic where he was found to have oxygen saturation in the low 80s, and that is why he was brought to the emergency room. In the emergency room, he did not have any orthopnea or leg swelling. Chest CT was performed which had suggested right lower lobe likely aspirational pneumonia associated with hiatal hernia. He was admitted for intravenous antibiotics. During hospital admission, the patient was treated with intravenous levofloxacin and intravenous clindamycin. He was also started on p.o. steroids and breathing treatment. With bronchodilators, antibiotics and steroids, his shortness of breath improved. The patient does not have a [employer] evaluation in the past, so Pulmonology consult was requested. However, before he could be seen, he requested to be discharged, so he was advised to follow up with [employer] as an outpatient. Though he had remote history of smoking, he did not have symptoms of chronic bronchitis for the last few years, and he denies any cough or expectoration on a regular basis. It was thought that his current shortness of breath could be in the setting of acute bronchitis versus chronic bronchitis or may be restrictive lung disease secondary to his marked kyphoscoliosis. The patient was taught how to use inhalers, and he qualified for home oxygen considering his room air saturation was 88%. At the time of discharge, he was discharged on antibiotics and steroids and inhalers, and he was advised to follow up with [employer]. There was some pleural thickening on the CT scan and some loculated opacity suggestive of consolidation on CT scan; however, he was advised to discuss these findings with lung doctor and regular doctor and have a followup CT scan. At the time of discharge, he was hemodynamically stable. More than 30 minutes was spent in discharging this patient. Plan of care was discussed with the patient and his daughter at bedside. All of their questions were answered. cc: Pacheco Roman MD
== END 2019-01-24 16:46 | disposition home or self-care (01) | DRG 871 ==
LOC: ED 16:06 → SUATTDRO 16:07 → 4N 16:07
PROVIDERS: ATTEND Internal Medicine
CPT/HCPCS: 71020; 71046; 71250; 80048; 80053; 81001; 82550; 83605; 83880; 84484; 85025; 85610; 85730; 87040; 87088; 87275; 87276; 87449; 87804; 87899; 90732; 93005; 94640; 94761; 94799; 96365; 96367; 96375; 99285; A9270; J0456; J0696; J1650; J1940; J1956; J2930; J7506; J7512